=== PATIENT | female | born 1925 | race Caucasian/White ===

== ENCOUNTER 2017-04-22 17:23 | Inpatient (IN) | payer MEDICARE, BC ==
[~2017-04-22] VITALS: Ht 154.9 cm; Wt 38.3 kg
[2017-04-22 17:55] LABS: BASO % 0.1 % (0.0-2.0); GRAN # 11.7 (1.4-6.5); GRAN % 83.9 % (42.2-75.2); LYMPH # 0.7 (1.2-3.4); LYMPH % 5.1 % (20.0-51.0); MEAN CELL VOLUME 82 fl (80.0-100.0); MEAN CORPUSCULAR HGB CONC 37 g/dl (33.0-37.0); MEAN PLATELET VOLUME 9.6 fl (7.4-10.4); MONO # 1.5 (0.1-0.6); MONO % 10.5 % (1.7-9.3); PLATELET COUNT 277 K/mm3 (130-400); REDCELL DISTRIBUTION WIDTH-CV 13.4 % (11.5-14.5)
[2017-04-22 17:58] LABS: HEMATOCRIT 29.4 % (37.0-47.0); HEMOGLOBIN 10.8 g/dl (12.5-16.0); MEAN CORPUSCULAR HEMOGLOBIN 30 pg (27.0-31.0)
[2017-04-22 18:17] LABS: ADJUSTED CALCIUM 9.5 mg/dL (8.4-10.2); ALBUMIN 3.8 gm/dL (3.5-5.0); BILIRUBIN,TOTAL 1.3 mg/dL (0.0-1.0); C-REACTIVE PROTEIN 5.9 mg/dL (0.0-0.9); CALCIUM 9.3 mg/dL (8.4-10.2); CREATININE, serum 0.74 mg/dL (0.52-1.25); POTASSIUM 4.2 mmol/L (3.4-5.0); TOTAL PROTEIN 6.8 gm/dL (6.4-8.2)
[2017-04-22] MEDS ORDERED: CYANOCOBAL1000 MCG/M IM (19:04)
[2017-04-22 19:14] LABS: PH 6 (5-8); SQUAMOUS EPITHELIAL None Seen /hpf; URINE APPEARANCE Hazy; URINE BACTERIA None Seen /hpf; URINE BILIRUBIN Negative (NEGATIVE); URINE BLOOD 1+ (NEGATIVE); URINE COLOR Yellow; URINE GLUCOSE 1+ (NEGATIVE); URINE KETONE Trace (NEGATIVE); URINE UROBILINOGEN Negative (NEGATIVE); URINE WBC 0-2 /hpf
[2017-04-22 19:20] LABS: PROTHROMBIN TIME 11.3 SECONDS (9.7-12.8)
[2017-04-22] MEDS ORDERED: NAMENDA5 MG PO (21:17)
[2017-04-22 21:41] VITALS: BP 106/78; PULSE 109; TEMP 98.9
[2017-04-22 23:51] VITALS: BP 122/50; PULSE 97; TEMP 98.7
[2017-04-23] VITALS (7 sets, daily range): BP systolic 91–138; BP diastolic 32–90; PULSE 86–112; TEMP 97.9–98.7
[2017-04-23 00:39] LABS: HEMATOCRIT 25.2 % (37.0-47.0); HEMOGLOBIN 9.3 g/dl (12.5-16.0)
[2017-04-23 07:08] LABS: HEMATOCRIT 23.1 % (37.0-47.0); HEMOGLOBIN 8.4 g/dl (12.5-16.0)
[2017-04-23 17:24] LABS: BASO % 0.1 % (0.0-2.0); GRAN # 6.5 (1.4-6.5); GRAN % 79.4 % (42.2-75.2); LYMPH # 0.6 (1.2-3.4); LYMPH % 7.5 % (20.0-51.0); MEAN CELL VOLUME 85 fl (80.0-100.0); MEAN CORPUSCULAR HGB CONC 35 g/dl (33.0-37.0); MEAN PLATELET VOLUME 9.6 fl (7.4-10.4); MONO % 12.5 % (1.7-9.3); RED BLOOD COUNT 2.43 M/mm3 (4.10-5.30); REDCELL DISTRIBUTION WIDTH-CV 14.2 % (11.5-14.5); WHITE BLOOD COUNT 8.2 K/mm3 (4.8-10.8)
[2017-04-23 17:27] LABS: HEMATOCRIT 20.6 % (37.0-47.0); HEMOGLOBIN 7.3 g/dl (12.5-16.0); MEAN CORPUSCULAR HEMOGLOBIN 30 pg (27.0-31.0); PLATELET COUNT 168 K/mm3 (130-400)
[2017-04-23 17:36] LABS: ADJUSTED CALCIUM 9.1 mg/dL (8.4-10.2); ALBUMIN 2.3 gm/dL (3.5-5.0); BILIRUBIN,TOTAL 0.4 mg/dL (0.0-1.0); CALCIUM 7.7 mg/dL (8.4-10.2); CREATININE, serum 0.62 mg/dL (0.52-1.25); MAGNESIUM 1.7 mg/dL (1.6-2.3); POTASSIUM 3.3 mmol/L (3.4-5.0); TOTAL PROTEIN 4.6 gm/dL (6.4-8.2)
[2017-04-23 18:06] LABS: THYROID STIMULATING HORMONE 1.16 uIU/mL (0.465-4.680)
[2017-04-24] VITALS (8 sets, daily range): BP systolic 89–122; BP diastolic 27–49; PULSE 78–101; TEMP 97.3–99
[2017-04-24 08:26] LABS: MEAN CELL VOLUME 85 fl (80.0-100.0); MEAN CORPUSCULAR HGB CONC 36 g/dl (33.0-37.0); MEAN PLATELET VOLUME 9.7 fl (7.4-10.4); PLATELET COUNT 147 K/mm3 (130-400); RED BLOOD COUNT 2.32 M/mm3 (4.10-5.30); REDCELL DISTRIBUTION WIDTH-CV 14.4 % (11.5-14.5); WHITE BLOOD COUNT 7.7 K/mm3 (4.8-10.8)
[2017-04-24 08:33] LABS: HEMATOCRIT 19.7 % (37.0-47.0); MEAN CORPUSCULAR HEMOGLOBIN 30 pg (27.0-31.0)
[2017-04-24 08:37] LABS: CALCIUM 7.7 mg/dL (8.4-10.2); CREATININE, serum 0.53 mg/dL (0.52-1.25); POTASSIUM 3.9 mmol/L (3.4-5.0)
[2017-04-24 08:48] LABS: BAND 12 % (0-10); METAMYELOCYTE 3 % (0-0); MYELOCYTE 1 % (0-0); NEUTROPHILS 72 % (42.0-75.2); PLATELET ESTIMATE NORMAL (NORMAL); TOTAL CELLS COUNTED 100
[2017-04-24 08:49] LABS: ADD PATHOLOGY DIFF REVIEW YES
[2017-04-25] VITALS (7 sets, daily range): BP systolic 115–146; BP diastolic 44–85; PULSE 73–108; TEMP 97.1–101.2
[2017-04-25 06:57] LABS: BASO % 0.1 % (0.0-2.0); EOS % 0.1 % (0-4.0); GRAN # 6.2 (1.4-6.5); GRAN % 79.3 % (42.2-75.2); LYMPH # 0.8 (1.2-3.4); LYMPH % 10.5 % (20.0-51.0); MEAN CELL VOLUME 87 fl (80.0-100.0); MEAN CORPUSCULAR HGB CONC 35 g/dl (33.0-37.0); MEAN PLATELET VOLUME 9.6 fl (7.4-10.4); MONO # 0.7 (0.1-0.6); MONO % 9.2 % (1.7-9.3); PLATELET COUNT 165 K/mm3 (130-400); RED BLOOD COUNT 3.47 M/mm3 (4.10-5.30); REDCELL DISTRIBUTION WIDTH-CV 14.7 % (11.5-14.5); WHITE BLOOD COUNT 7.8 K/mm3 (4.8-10.8)
[2017-04-25 06:59] LABS: CALCIUM 7.7 mg/dL (8.4-10.2); CREATININE, serum 0.52 mg/dL (0.52-1.25); POTASSIUM 3.7 mmol/L (3.4-5.0)
[2017-04-25 07:00] LABS: HEMATOCRIT 30.1 % (37.0-47.0); HEMOGLOBIN 10.4 g/dl (12.5-16.0); MEAN CORPUSCULAR HEMOGLOBIN 30 pg (27.0-31.0)
[2017-04-25 08:32] LABS: PATHOLOGY DIFF REVIEW OK
[2017-04-25 14:03] LABS: PH 6 (5-8); SQUAMOUS EPITHELIAL 0-2 /hpf; URINE APPEARANCE Hazy; URINE BACTERIA None Seen /hpf; URINE BILIRUBIN Negative (NEGATIVE); URINE BLOOD 3+ (NEGATIVE); URINE COLOR Yellow; URINE GLUCOSE Negative (NEGATIVE); URINE KETONE Negative (NEGATIVE); URINE RBC >50 /hpf; URINE UROBILINOGEN >=4.0 mg/dL (NEGATIVE); URINE WBC 20-50 /hpf
[2017-04-26 00:28] VITALS: BP 135/55; PULSE 82; TEMP 98
[2017-04-26 05:36] VITALS: BP 156/59; PULSE 66; TEMP 97
[2017-04-26 05:53] LABS: BASO % 0.2 % (0.0-2.0); EOS # 0.1 (0.0-0.7); EOS % 0.9 % (0-4.0); GRAN # 7.2 (1.4-6.5); GRAN % 79.3 % (42.2-75.2); LYMPH % 11.1 % (20.0-51.0); MEAN CELL VOLUME 86 fl (80.0-100.0); MEAN CORPUSCULAR HGB CONC 34 g/dl (33.0-37.0); MEAN PLATELET VOLUME 9.4 fl (7.4-10.4); MONO # 0.7 (0.1-0.6); MONO % 7.8 % (1.7-9.3); PLATELET COUNT 193 K/mm3 (130-400); RED BLOOD COUNT 4.18 M/mm3 (4.10-5.30); REDCELL DISTRIBUTION WIDTH-CV 14.6 % (11.5-14.5)
[2017-04-26 05:54] LABS: HEMATOCRIT 36.1 % (37.0-47.0); HEMOGLOBIN 12.4 g/dl (12.5-16.0); MEAN CORPUSCULAR HEMOGLOBIN 30 pg (27.0-31.0)
[2017-04-26 06:03] LABS: CREATININE, serum 0.56 mg/dL (0.52-1.25); POTASSIUM 3.7 mmol/L (3.4-5.0)
[2017-04-26 08:54] VITALS: BP 141/56; PULSE 79; TEMP 98.1
[2017-04-26 09:32] LABS: CALCIUM 7.9 mg/dL (8.4-10.2); CREATININE, serum 0.55 mg/dL (0.52-1.25); POTASSIUM 3.6 mmol/L (3.4-5.0)
[2017-04-26] MEDS ORDERED: TYLENOL 325MG325 MG PO (10:10)
[2017-04-26 11:26] VITALS: BP 141/56; PULSE 79; TEMP 98.1
[2017-04-26] MEDS ORDERED: VITAMIN C500 MG PO (11:28)
[2017-04-26] MEDS ORDERED: NAMENDA5 MG PO (11:28)
[2017-04-26] MEDS ORDERED: ARICEPT10 MG PO (11:28)
== END 2017-04-26 14:00 | DRG 669 ==
LOC: COL.ER 17:23 → MEDICAL 20:31
PROVIDERS: Family Medicine; Internal Medicine; Physician Assistant; Urology
PROC: 0TBB8ZX Excision of Bladder, Via Natural or Artificial Opening Endoscopic, Diagnostic (ICD-10-PCS; principal; 2017-04-24 13:00)
PROC: 0TCB8ZZ Extirpation of Matter from Bladder, Via Natural or Artificial Opening Endoscopic (ICD-10-PCS; 2017-04-24 13:00)
DX: N32.89 Other specified disorders of bladder (principal); E87.1 Hypo-osmolality and hyponatremia; F05 Delirium due to known physiological condition; R31.0 Gross hematuria; I10 Essential (primary) hypertension; E86.0 Dehydration; F03.90 Unspecified dementia, unspecified severity, without behavioral disturbance, psychotic disturbance, mood disturbance, and anxiety
CPT/HCPCS: 99222-AI; 99232-AI; 99233-AI; 99239; A4315; J2270; J2405; J3010; J3370; J3480; J7030; J7050; P9016; Q9967